=== PATIENT | female | born 1975 | race Caucasian/White ===

== ENCOUNTER 2020-11-29 10:07 | Day surgery (SDC) | payer BC ==
[2020-11-28 12:23] VITALS: BMI 29.5
[2020-11-29] MEDS ORDERED: Midazolam HCl 2 mg/2 ml Vial ONE (11:35)
[2020-11-29] MEDS ORDERED: Fentanyl 250 MCG/5 ML VIAL ONE (11:35)
[2020-11-29] MEDS ORDERED: Neomycin-Polymyxin 1 ML AMP ONE (11:59)
[2020-11-29] MEDS ORDERED: Thrombin 5000 UNITS/5 ML VIAL ONE (11:59)
[2020-11-29] MEDS ORDERED: Bupivacaine PF 0.5% 30 ML VIAL ONE (11:59)
[2020-11-29] MEDS ORDERED: EPINEPHrine 1 MG/ML AMP ONE (11:59)
[2020-11-29] MEDS ORDERED: PROPOFOL 200 MG/20 ML VIAL ONE (12:27)
[2020-11-29] MEDS ORDERED: Ondansetron PF 4 MG/2 ML Vial ONE (12:27)
[2020-11-29] MEDS ORDERED: Rocuronium Bromide 10 MG/ML (10ML VIAL) ONE (12:27)
[2020-11-29] MEDS ORDERED: Dexamethasone 20 MG/5 ML VIAL ONE (12:27)
[2020-11-29] MEDS ORDERED: Glycopyrrolate 0.2 MG/ML 5 ML SYRINGE ONE (12:27)
[2020-11-29] MEDS ORDERED: Ketorolac Tromethamine 30 MG/ML VIAL ONE ×2 (12:27→14:48)
[2020-11-29] MEDS ORDERED: Lidocaine 1% PF 5 ML VIAL ONE (12:27)
[2020-11-29] MEDS ORDERED: Fentanyl 100 MCG/2 ML VIAL ONE ×2 (15:05→15:26)
[2020-11-29] MEDS ORDERED: HYDROcodone/Acetaminophen 5/325 mg Tablet ONE (17:18)
== END 2020-11-29 18:30 | disposition home or self-care (01) ==
LOC: SDC 10:07
PROVIDERS: ATTEND Neurological Surgery
PROC: 01NB0ZZ Release Lumbar Nerve, Open Approach (ICD-10-PCS; principal; 2020-11-29)
DX: M71.38 Other bursal cyst, other site (principal); M48.062 Spinal stenosis, lumbar region with neurogenic claudication; M19.90 Unspecified osteoarthritis, unspecified site; E03.9 Hypothyroidism, unspecified; Z87.891 Personal history of nicotine dependence; Z79.899 Other long term (current) drug therapy; Z88.1 Allergy status to other antibiotic agents; Z91.048 Other nonmedicinal substance allergy status
CPT/HCPCS: 76000; J0171; J0690; J1100; J1885; J2250; J2405; J2704; J3010; J3370; S0020